=== PATIENT | female | born 1995 | race Caucasian/White ===

== ENCOUNTER 2018-02-02 12:36 | Emergency (ER) | payer SELFPAY ==
[~2018-02-02 12:36] MED LIST: DEPO150I IM; GUAN2ER PO; PROZ20CA11 PO; RISP0.5T2 PO
[2018-02-02 12:52] VITALS: BP 141/66; PULSE 108; RESP 16; TEMP 98.8; O2SAT 98
--- NOTE | 2018-02-02 15:25 | PD ---
HPI Chief Complaint: Complaint Time Seen by Provider: 12:52 Travel History International Travel<30 days: No Contact w/Intl Traveler<30days: No Traveled to known affect area: No History of Present Illness HPI 22-year-old female presents to [facility] department for evaluation of burning with urination 4 days. She states this morning she has had pressure under her umbilicus to her vagina like somebody is stepping on her. She has a lot of pressure in her vagina. Denies any discharge. No vaginal bleeding. No trauma. No fever or chills. PFSH Past Medical History ADHD: No Cancer: No Cardiovascular Problems: No Diabetes: No Headaches: No Psychiatric: Yes (MOOD D/O, DEPRESSION) Migraines: No Seizures: No Thyroid Disease: No Ulcer: No : 0 Past Surgical History Other Surgery: No Social History Alcohol Use: Yes Tobacco Use: Yes Substance Use: Yes Allergies-Medications (Allergen,Severity, Reaction): Coded Allergies: No Known Allergies (Unverified , 02/28/14) Reported Meds & Prescriptions Reported Meds & Active Scripts Active Prozac (Fluoxetine HCl) 20 Mg Cap 20 Mg PO DAILY Intuniv (Guanfacine Hcl Er (Adhd)) 2 Mg Tab 2 Mg PO DAILY INTUNIV Risperdal (Risperidone) 0.5 Mg Tab 0.5 Mg PO BID Reported Depo-Provera Contraceptive (Medroxyprogesterone Acetate) 150 Mg/Ml Susp 150 Mg IM Q90D Review of Systems Except as stated in HPI: all other systems reviewed are Neg Physical Exam Narrative Nontoxic appearing female patient ambulatory and in no acute distress. Even respirations. Tachycardic.. Abdomen soft nondistended. She moves all extremities. She speaks clearly. Data Data Last Documented VS Vital Signs Date Time Temp Pulse Resp B/P (MAP) Pulse Ox O2 Delivery O2 Flow Rate FiO2 02/02/18 12:52 98.8 108 16 141/66 (91) 98 Orders Orders Urinalysis - C+S If Indicated (02/02/18 12:54) Ed Urine Pregnancytest Poc (02/02/18 12:54) Gc And Chlamydia Pcr (02/02/18 12:54) MDM Medical Decision Making Medical Screen Exam Complete: Yes Emergency Medical Condition: Yes Medical Record Reviewed: Yes Differential Diagnosis Cystitis versus vaginitis versus urethritis versus STD versus PID Narrative Course 22-year-old female presents emergency department for evaluation. Prior to room placement, patient leaves the emergency department. AMA: The risks of leaving against medical advice without further evaluation treatment were discussed with the patient. These risks include cardiac dysfunction, cardiac dysrhythmia, possible heart attack, possible stroke or . The patient indicated understanding of these risks and appeared to have the capacity to make this decision. Diagnosis Primary Impression: Dysuria Disposition: 07 AGAINST MEDICAL ADVICE Condition: Stable Andreia Melendez Feb 02, 2018 15:24
== END 2018-02-02 15:20 | disposition left against medical advice (07) ==
LOC: NETRI 12:36
DX: R30.0 Dysuria (principal); Z72.0 Tobacco use
CPT/HCPCS: 99281